=== PATIENT | male | born 1995 | race Caucasian/White ===

== ENCOUNTER 2016-07-29 13:06 | Day surgery (SDC) | payer OTHER ==
[~2016-07-29] VITALS: Ht 180.3 cm; Wt 118.8 kg
[2016-07-29 16:14] LABS: HEMATOCRIT 44.5 % (38.0-50.0); MCH 31.2 PG (29.0-34.0); MCHC 35.7 G/DL (30.0-36.0); MCV 87.3 FL (86-99); PLATELET COUNT 197 K/uL (156-360); RBC DIS.WIDTH-CV 12.3 % (11.8-14.6); RBC DIS.WIDTH-SD 38.6 % (39-53); WHITE BLOOD COUNT 8.4 K/uL (4.1-10.2)
[2016-07-29 16:29] LABS: CHLORIDE 107 mEq/L (99-109); POTASSIUM 4.1 mEq/L (3.7-5.4); SODIUM 142 mEq/L (136-147)
[2016-07-29 16:31] LABS: GLUCOSE 81 mg/dL (70-99)
[2016-07-29 16:32] LABS: ANION GAP 11 MEQ/L (2-14)
[2016-07-29 16:33] LABS: TOTAL BILIRUBIN 0.8 mg/dL (0.0-1.0)
[2016-07-29 16:36] LABS: ALKALINE PHOSPHATASE 54 IU/L (3-129); GFR ESTIMATE (CALCULATED) > 59 mL/min/; UREA NITROGEN (BUN) 10 mg/dL (9-23)
[2016-07-29 16:48] LABS: LIPASE 24 U/L (1.0-51.0)
[2016-07-29 17:31] LABS: ADD MIUA? NO; BILIRUBIN NEGATIVE; BLOOD NEGATIVE; COLOR YELLOW ((YELLOW)); GLUCOSE (STRIP) NEGATIVE; KETONES NEGATIVE; LEUKOCYTES NEGATIVE; NITRITE NEGATIVE; PROTEIN (STRIP) NEGATIVE; SPECIFIC GRAVITY 1.036 (1.000-1.030); UCUL ADDED? NO; UROBILINOGEN 0.2 MG/DL (0.2-1.0)
[2016-07-29 23:19] VITALS: BP 116/59
[2016-07-30 03:36] VITALS: BP 121/56
[2016-07-30 08:01] VITALS: BP 120/68
== END 2016-07-30 08:12 | disposition home or self-care (01) ==
LOC: EME 13:06 → SDC 19:06 → 2SOUTH 20:11 → 2EASTP 21:29
PROC: 0DTJ4ZZ Resection of Appendix, Percutaneous Endoscopic Approach (ICD-10-PCS; principal; 2016-07-29)
DX: K35.80 Unspecified acute appendicitis (principal); F17.210 Nicotine dependence, cigarettes, uncomplicated
CPT/HCPCS: 74177; 80053; 81003; 83690; 85027; 88304; 99281; 99285; G0378; J0131; J0330; J1100; J1170; J1335; J1650; J1885; J2250; J2405; J2710; J2765; J3010; J7040; J7120